=== PATIENT | female | born 1970 | race Caucasian/White ===

== ENCOUNTER → 2021-03-19 | Day surgery (SDC) | payer OTHER ==
[~2021-03-19] MED LIST: APPLE CIDER VI300 MG PO; BLACK ELDERBER1 EACH PO; CRANBERRY200 MG PO; DAILY VALUE1 EACH PO; K-DUR20 MEQ PO; LOVAZA1 GM PO; MILK THISTLE140 M1 PO; TUMERIC PO; VITAMIN B-121000 MC1 PO; [UNRECOGNIZED DRUG - OTHER] PO
[2021-03-19 08:31] LABS: HGB 14.3 g/dl (12.5-16.0); MCH 32.4 pg (25.0-31.0); MCV 95.2 fL (78.0-100.0); MPV 10.5 fL (6.0-9.5); RBC 4.41 M/uL (4.20-5.40); RDW 12.3 % (11.5-14.0); WBC 6.3 K/uL (4.0-10.5)
[2021-03-19 08:54] LABS: ALBUMIN 3.9 g/dL (3.4-5.0); BILIRUBIN - TOTAL 0.7 mg/dL (0.2-1.0); BUN/CREAT RATIO (CALC) 15.6 RATIO; CREATININE 0.64 mg/dL (0.51-0.95); GLOBULIN (CALCULATION) 3.4 g/dL; POTASSIUM 3.7 mmol/L (3.5-5.1); TOTAL PROTEIN 7.3 g/dL (6.4-8.2)
== END | disposition home or self-care (01) ==
LOC: FAS 07:59
PROVIDERS: Surgery
DX: Z12.11 Encounter for screening for malignant neoplasm of colon (principal); E78.00 Pure hypercholesterolemia, unspecified; F41.9 Anxiety disorder, unspecified; F17.210 Nicotine dependence, cigarettes, uncomplicated; Z20.822 Contact with and (suspected) exposure to COVID-19; Z88.8 Allergy status to other drugs, medicaments and biological substances; Z88.1 Allergy status to other antibiotic agents; Z88.5 Allergy status to narcotic agent; Z98.890 Other specified postprocedural states; Z82.49 Family history of ischemic heart disease and other diseases of the circulatory system
CPT/HCPCS: 36415; 80053; J1610; J2250; J2704; J7120

== ENCOUNTER 2021-12-16 22:12 | Emergency (ER) | payer OTHER ==
[~2021-12-16 22:12] MED LIST changes: +ZOFRAN4 M1 PO
[2021-12-16 22:49] LABS: EOSINOPHIL 0 % (0-5); HCT 43.4 % (37.0-47.0); HGB 14.6 g/dl (12.5-16.0); LYMPHOCYTE 38.3 % (15-48); MCH 32.4 pg (25.0-31.0); MCHC 33.6 g/dL (32.0-36.0); MCV 96.2 fL (78.0-100.0); MONOCYTE 6.3 % (0-12); MPV 10.8 fL (6.0-9.5); NRBC 0; PLT 206 K/uL (150-400); RBC 4.51 M/uL (4.20-5.40); RDW 12.7 % (11.5-14.0); WBC 7.7 K/uL (4.0-10.5)
[2021-12-16 23:02] LABS: ALBUMIN 4.4 g/dL (3.4-5.0); ALKALINE PHOSHATASE 70 U/L (46-116); ALT 35 U/L (14-59); AST 17 U/L (15-37); BILIRUBIN - TOTAL 0.2 mg/dL (0.2-1.0); BUN 15 mg/dL (7-18); BUN/CREAT RATIO (CALC) 22.1 RATIO; CHLORIDE 104 mmol/L (98-107); CO2 (BICARBONATE) 24 mmol/L (21-32); CREATININE 0.68 mg/dL (0.51-0.95); GLOBULIN (CALCULATION) 3.2 g/dL; GLUCOSE 94 mg/dL (74-106); POTASSIUM 3.2 mmol/L (3.5-5.1); TOTAL PROTEIN 7.6 g/dL (6.4-8.2)
[2021-12-17] MEDS ORDERED: MEDROL 4MG DOSEP4 MG PO (01:18)
== END 2021-12-17 01:46 | disposition home or self-care (01) ==
LOC: FER 22:12
PROVIDERS: Emergency Medicine
DX: R03.0 Elevated blood-pressure reading, without diagnosis of hypertension (principal); F17.210 Nicotine dependence, cigarettes, uncomplicated; Z88.1 Allergy status to other antibiotic agents; Z88.5 Allergy status to narcotic agent
CPT/HCPCS: 36415; 71045; 80053; 83690; 84484; 85025; 85379; 93005; J1885; J2930